=== PATIENT | female | born 1995 | race Caucasian/White ===

== ENCOUNTER 2021-09-22 02:15 | Emergency (ER) | payer BC ==
[2021-09-22] MEDS ORDERED: Sodium Chloride 0.9% 1,000 ML IV STA (03:00)
[2021-09-22] MEDS ORDERED: Sodium Chloride 0.9% 10 ML Syringe FLUSH PRN ×2 (03:00→04:04)
[2021-09-22] MEDS ORDERED: Ondansetron 4 MG/2 ML SDV IVPUSH ONE (03:00)
[2021-09-22] MEDS ORDERED: HYDROmorphone 0.5 MG/0.5 ML Syringe IVPUSH ONE (03:01)
[2021-09-22 03:54] LABS: ESTIMATED GFR 92 mL/min (>60)
[2021-09-22] MEDS ORDERED: Iopamidol 612 MG/ML 100 ML Bottle IVPUSH ONE (04:04)
[2021-09-22] MEDS ORDERED: Magnesium Citrate Solution 296 ML Bottle PO ONE (05:34)
[2021-09-22] MEDS ORDERED: cefTRIAXone 1 GM in Sodium Chloride 0.9% 100 ML IV ONE (05:34)
== END 2021-09-22 06:17 | disposition home or self-care (01) ==
LOC: JD.ED 02:15
DX: K76.9 Liver disease, unspecified (principal); N30.00 Acute cystitis without hematuria; K59.09 Other constipation
CPT/HCPCS: 36415; 74177; 80053; 81001; 83690; 84703; 85025; 87086; 96361; 96365; 96375; 99284; A9270; J0696; J1170; J2405; J3490; J7030; Q9967